=== PATIENT | female | born 1980 | race Two or more races ===

== ENCOUNTER 2022-10-08 10:44 | Emergency (ER) | payer MEDICAID ==
[~2022-10-08] VITALS: Ht 154.9 cm; Wt 52.4 kg
[~2022-10-08 10:44] MED LIST: CIPR500T4; GLIM4TAB42; LISI20TA56; METF-370; NORGTAB33; PIOG1TAB51
[2022-10-08] MEDS ORDERED: cloNIDine HCL 0.1 MG TAB PO ONE (11:00)
[2022-10-08 11:35] LABS: Basophils # (auto) 0.1 10 ^3/uL (0-0.2); Eosinophils # (auto) 0.3 10 ^3/uL (0-0.8); Eosinophils % (auto) 3.9 % (0.0-7.0); Hematocrit 30.5 % (36.0-46.0); Lymphocytes % (auto) 23.4 % (10.0-50.0); Mean Corpuscular Hemoglobin 27.8 pg (28.0-32.0); Mean Corpuscular Hgb Conc. 32.9 g/dL (32.0-36.0); Mean Corpuscular Volume 84.6 fL (80.0-100.0); Monocytes # (auto) 0.4 10 ^3/uL (0-1.3); Monocytes % (auto) 4.2 % (0.0-12.0); Neutrophils # (auto) 5.7 10 ^3/uL (1.6-8.6); Neutrophils % (auto) 67.5 % (37.0-80.0); Nucleated Red Blood Cells % 0.1 %; Red Blood Cells 3.61 10^6/uL (4.0-5.20); Red Cell Distribution Width 14.3 % (11.8-14.3); White Blood Cell 8.5 10^3/uL (4.4-10.8)
[2022-10-08 12:33] LABS: Albumin 1.9 g/dL (3.4-5.0); Calcium 7.5 mg/dL (8.5-10.1); Potassium 4.4 mmol/L (3.5-5.1)
[2022-10-08 12:36] LABS: Bilirubin, Total 0.2 mg/dL (0.2-1.0); Total Protein 5.7 g/dL (6.4-8.2)
[2022-10-08 13:02] LABS: Urine Bacteria NONE SEEN /hpf (None Seen); Urine Blood 2+ /uL (Negative); Urine Clarity Clear (Clear); Urine Protein, UAD 3+ (Negative); Urine Specific Gravity 1.014 (1.001-1.035); Urine Urobilinogen Normal (Negative); Urine WBC 2 /hpf (0 - 5)
[2022-10-08 13:07] LABS: Urine Color Straw (Yellow)
[2022-10-08 13:46] VITALS: BP 142/83; PULSE 16; RESP 16; TEMP 97.6; O2SAT 100
== END 2022-10-08 13:49 | disposition home or self-care (01) ==
LOC: ER 10:44
DX: I16.0 Hypertensive urgency (principal); I25.10 Atherosclerotic heart disease of native coronary artery without angina pectoris; E11.9 Type 2 diabetes mellitus without complications; E78.5 Hyperlipidemia, unspecified; I10 Essential (primary) hypertension; Z79.899 Other long term (current) drug therapy; Z98.890 Other specified postprocedural states
CPT/HCPCS: 36415; 70450; 80053; 81001; 85025; 93005